=== PATIENT | male | born 1955 | race Caucasian/White ===

== ENCOUNTER 2018-06-17 11:55 | Inpatient (IN) ==
[2018-06-17 14:02] LABS: BASO# 0.02 X1000 (0.0-0.2); BASO% 0.2 % (0.0-0.8); EOS# 0.06 X1000 (0.0-0.7); EOS% 0.5 % (0.0-10.0); HEMATOCRIT 27.4 % (42.0-52.0); HEMOGLOBIN 8.7 g/dL (14.0-18.0); IMM GRAN# 0.05 X1000 (0.0-0.04); IMM GRAN% 0.4 % (0.0-0.5); LYMPH# 1.13 X1000 (1.2-3.4); LYMPH% 10.1 % (20.5-51.1); MCH 28.1 PG (27-31); MCHC 31.8 g/dL (33-37); MCV 88.4 FL (81-99); MONO# 0.71 X1000 (0.11-0.59); MONO% 6.3 % (1.7-9.3); NEUT# 9.22 X1000 (1.4-6.5); NEUT% 82.5 % (42.2-75.2); PLT 577 X1000 (130-400); RDW 12.1 % (11.5-14.5); WBC 11.19 X1000 (4.8-10.8)
[2018-06-17 14:24] LABS: AGAP 12; BUN 21 mg/dL (8-22); CALCIUM 8.7 mg/dL (8.8-10.2); CHLORIDE 100 mmol/L (98-107); COSMO 280; CREATININE 0.9 mg/dL (0.7-1.2); ESTIMATED GFR > 60; GLUCOSE 188 mg/dL (70-104); POTASSIUM 4.2 mmol/L (3.5-5.1); SODIUM 136 mmol/L (136-145); TCO2 24 mmol/L (25-35)
[2018-06-17] MEDS ORDERED: VANCOMYCIN IV PER PHARMACY MISC SCH (18:45)
--- NOTE | 2018-06-17 19:17 | CONSULTATION ---
DATE OF CONSULTATION: 06/17/2018 HISTORY OF PRESENT ILLNESS: Apparently he was sent here from [place], and there is no one at the bedside. History is that he reports his leg and foot has been giving him trouble for over a week. It looks like he has ischemic necrotic tissue in the distal right foot with an anaerobic smell and very tender and uncomfortable. I could not palpate any pedal pulses on that right foot. PAST MEDICAL HISTORY: He reports that he has diabetes, hypertension, hypercholesterolemia. PAST SURGICAL HISTORY: He does not report any surgeries. ALLERGIES: He has no known drug allergies. FAMILY HISTORY: He does not know of any family history he needs to tell me about. SOCIAL HISTORY: He denies alcohol, and he did not seem to understand what I was asking about smoking so I am not sure about his smoking history. REVIEW OF SYSTEMS: General: He does not report weight gain or loss. No fever, chills. HEENT: No change in visual or hearing acuity. Neck: No neck pain. Lymphatics: No adenopathy. Respiratory: No increased work of breathing or dyspnea. Cardiovascular: No chest pain or tachy palpitations. Gastrointestinal/Genitourinary: No reports of change in bowels or urine. Musculoskeletal/Neurologic: No new complaints or focal complaints. PHYSICAL EXAMINATION: When I saw him here on transfer, uncomfortable because he had just been transferred to the bed and then cleaned up. His right leg is very painful, his right foot. Temperature 98 degrees, pulse 80, respirations 16, blood pressure 117/73. HEENT: Pupils are equal round. Lungs: Clear in all lung avila. Cardiovascular: Regular rate without murmur or S3. CVP what appears to be less than 6 cm from the right atrium. Abdomen: Soft, nondistended. Extremities: Right leg with necrotic tissue and necrosis in the distal right foot starting and covering most of the right metatarsals. OBJECTIVE: Temperature degrees, pulse 85, respirations 16, blood pressure 117/73, O2 saturation 98%. BLOOD WORK: White count 11,190, hematocrit is 27, hemoglobin 8.7, platelet count 577,000. Sodium 136, potassium 4.2, chloride 100, bicarb 24, BUN 21, creatinine 0.9, blood sugar 188, calcium 8.7. MEDICATIONS: They had put him on some Kefzol 1 g IV q.8. He is on Plavix 75 mg a day, [place] 7.5 mg q.4 hours p.r.n., Prinivil 10 mg daily. ASSESSMENT AND PLAN: 1. Appears to be ischemic necrosis in the right foot. Dr. Padilla is to evaluate. We will continue current medication. I am not aware of any cultures that are pending, but we do need to get blood cultures and tissue cultures. I think he probably needs broad-spectrum antibiotic coverage, so I will put him on Zosyn and add vancomycin until we know what type of infection we have. We will get regular x-rays of the right foot, but he may need more definitive studies. 2. Diabetes mellitus type 2. Check patterned sugars and put on sliding scale. We will check hemoglobin A1c and see how we are doing as far as the last couple months for control. 3. Hypercholesterolemia. We will check a lipid profile. 4. Probably need to check an EKG on him as well. I am assuming we will check some Doppler flow studies, and I will defer that to Dr. Padilla. cc: MD Armando Florian MD
[2018-06-17] MEDS: KEFZOL 1 GM/D5W 1 GM/50 ML IVPB IV SCH (20:27)
[2018-06-18] MEDS: VANCOMYCIN 1,800 MG in NS 250 ML IV SCH (01:52)
[2018-06-18] MEDS: ZOSYN 3.375 GM in NS 50 ML IV SCH ×5 (02:38→22:22)
[2018-06-18] MEDS: KEFZOL 1 GM/D5W 1 GM/50 ML IVPB IV SCH (02:41)
[2018-06-18] MEDS: PRINIVIL PO SCH ×2 (02:41→11:05)
[2018-06-18] MEDS: PLAVIX PO SCH ×2 (02:42→11:05)
[2018-06-18] MEDS: NORCO-7.5 PO PRN ×2 (02:45→18:14)
[2018-06-18] MEDS ORDERED: BLISTEX MEDICATED BERRY LIP BALM TOP ONE (03:17)
[2018-06-18 06:04] LABS: BASO# 0.02 X1000 (0.0-0.2); BASO% 0.2 % (0.0-0.8); EOS# 0.11 X1000 (0.0-0.7); HEMATOCRIT 27.3 % (42.0-52.0); HEMOGLOBIN 8.6 g/dL (14.0-18.0); IMM GRAN# 0.02 X1000 (0.0-0.04); IMM GRAN% 0.2 % (0.0-0.5); LYMPH# 1.13 X1000 (1.2-3.4); LYMPH% 9.9 % (20.5-51.1); MCH 27.7 PG (27-31); MCHC 31.5 g/dL (33-37); MCV 88.1 FL (81-99); MONO# 0.76 X1000 (0.11-0.59); MONO% 6.7 % (1.7-9.3); MPV 10.5 FL (7.4-10.4); NEUT# 9.37 X1000 (1.4-6.5); PLT 580 X1000 (130-400); WBC 11.41 X1000 (4.8-10.8)
[2018-06-18 06:17] LABS: HEMOGLOBIN A1C 7.1 % (4.8-6.0)
[2018-06-18 06:33] LABS: AGAP 12; ALB/GLOB RATIO 0.5; ALBUMIN 2.9 g/dL (3.5-5.0); ALKALINE PHOSPHATASE 212 U/L (32-122); BUN 16 mg/dL (8-22); CALCIUM 9.8 mg/dL (8.8-10.2); CHLORIDE 103 mmol/L (98-107); CHOLESTEROL 79 mg/dL (0-200); COSMO 278; CREATININE 0.9 mg/dL (0.7-1.2); ESTIMATED GFR > 60; GLUCOSE 145 mg/dL (70-104); GOT 24 U/L (10-34); GPT 27 U/L (10-44); HDL 33 mg/dL (35-55); LDL 37 mg/dL; MAGNESIUM 1.9 mg/dL (1.5-2.7); POTASSIUM 4.3 mmol/L (3.5-5.1); SODIUM 137 mmol/L (136-145); TCO2 22 mmol/L (25-35); TOTAL BILIRUBIN 0.36 mg/dL (0.20-1.00); TOTAL PROTEIN 8.6 g/dL (6.3-8.3); TRIGLYCERIDES 46 mg/dL (39-160); VLDL 9 mg/dL
[2018-06-18 06:48] LABS: FREE T4 1.18 ng/dL (0.93-1.70); TSH 1.61 uIUmL (0.27-4.20)
--- NOTE | 2018-06-18 07:12 | PROGRESS NOTE ---
DATE: 06/18/2018 SUBJECTIVE: Mr. Nguyen was sleeping, resting comfortably, breathing comfortably. OBJECTIVE: Temperature 98.5 degrees, pulse 100, respirations 15, blood pressure 103/67. Pupils are equal. No distended neck veins. Lungs are clear in all lung avila. Cardiovascular Examination: Regular rhythm and rate without murmur or S3. ASSESSMENT AND PLAN: 1. Appears to have ischemic necrosis of the right foot. Was transferred here. Continue broad- spectrum antibiotics. He is to get an arterial flow study. Dr. Padilla following. 2. Diabetes mellitus type 2. Continue to follow his sugars. 3. Blood pressures appear well controlled. REVIEW OF HIS ORDERS: He is on vancomycin and Zosyn, and he is getting cefazolin. I will stop the cefazolin for now. cc: MD Armando Florian MD
[2018-06-18] MEDS ORDERED: ZOSYN ONE (09:38)
--- NOTE | 2018-06-18 10:02 | GENERAL SURGERY PROGRESS NOTE ---
DATE: 06/18/2018 Dr. Fairchild has seen him in consultation regarding medical care and I appreciate that. Mr. Nguyen is awake and alert. He is getting his tube feedings as he was in [place]. His hemodynamics were okay. He is afebrile. Heart rate 100, blood pressure 127/73. His lab work looks satisfactory so we will get a CAT scan angiogram today to evaluate his vasculature of the right leg. cc: Armando Padilla MD
[2018-06-18] MEDS ORDERED: NS 500 ML ONE (11:14)
--- NOTE | 2018-06-18 15:34 | Diag Imaging Result Doc PS360 ---
EXAM: CT ANGIOGRAM AORTA W/RUNOFF 06/18/2018 HISTORY: gangrene of right foot TECHNIQUE: This exam was performed using automated exposure control, adjustment of mA or kV according to patient size, and/or use of iterative reconstruction technique. COMMENT: There are no previous studies available for comparison. There is some atelectasis or fibrosis in the left lower lobe. There is a fairly large amount of stool throughout the colon. There is fecal impaction in the rectum. There is no evidence of bowel obstruction or appendicitis. There is a gastrostomy tube in the gastric body. There are no gallstones. There is no evidence of hydronephrosis or nephrolithiasis. There are multiple cysts in the right kidney. There are calcific and noncalcified plaques in the abdominal aorta. There is some calcified plaque in the proximal left renal and the ostium of the superior mesenteric artery. There is noncalcified plaque with ulceration in the distal abdominal aorta just below the renal arteries. The inferior mesenteric artery is patent. There is no evidence of aneurysm. There is 40% diameter stenosis of the distal left common iliac artery. The external iliac arteries are patent as are the common femoral arteries. There is stenosis of the superficial femoral artery proximally on the right. Heavy calcification is present in the mid and distal superficial femoral arteries. There are multiple serial stenoses in both superficial femoral arteries and there is occlusion of the right superficial femoral artery as it enters the adductor canal with string-like reconstitution in the popliteal artery. The tibioperoneal trunk is also narrowed. There is motion artifact affecting the distal right leg. There is some apparent runoff in the peroneal and posterior tibial arteries on the right to the ankle. The same is true on the left side where the popliteal artery and tibial peroneal artery are slightly less narrowed. There is soft tissue gas in the great toe distally on the right. This is consistent with gas gangrene. IMPRESSION: 1. Constipation and fecal impaction. 2. Generalized atherosclerosis with severe disease in the superficial femoral and popliteal arteries particularly on the right, including fairly long segment occlusion of the right superficial femoral artery. Electronically signed by Abraham Mcguire 06/18/2018 3:31 PM
[2018-06-19] MEDS: VANCOMYCIN 1,800 MG in NS 250 ML IV SCH (02:36)
[2018-06-19 06:22] LABS: AGAP 11; ALBUMIN 2.9 g/dL (3.5-5.0); BUN 19 mg/dL (8-22); CALCIUM 9.3 mg/dL (8.8-10.2); CHLORIDE 102 mmol/L (98-107); COSMO 280; CREATININE 0.9 mg/dL (0.7-1.2); ESTIMATED GFR > 60; GLUCOSE 174 mg/dL (70-104); MAGNESIUM 2.1 mg/dL (1.5-2.7); PHOSPHORUS 3.8 mg/dL (2.7-4.5); POTASSIUM 4.4 mmol/L (3.5-5.1); PREALBUMIN 11.3 mg/dL (20-40); SODIUM 137 mmol/L (136-145); TCO2 24 mmol/L (25-35)
--- NOTE | 2018-06-19 07:11 | EKG Report ---
Test Performed on : 06/17/2018 9:02:36 PM Test Reason : CP Blood Pressure : / mmHG Vent. Rate : 089 BPM Atrial Rate : 089 BPM P-R Int : 154 ms QRS Dur : 068 ms QT Int : 376 ms P-R-T Axes : 060 -06 049 degrees QTc Int : 457 ms Normal sinus rhythm. Normal ECG No previous ECGs available Confirmed by Yaneth CARRENO, Monster ([id number]) on 06/19/2018 8:54:08 AM
[2018-06-19] MEDS: PRINIVIL PO SCH (09:59)
[2018-06-19] MEDS: PLAVIX PO SCH (09:59)
[2018-06-19] MEDS: ZOSYN 3.375 GM in NS 50 ML IV SCH ×2 (10:12→18:51)
--- NOTE | 2018-06-19 13:29 | PROGRESS NOTE ---
DATE: 06/19/2018 SUBJECTIVE: Mr. Nguyen is feeling better. He is awake, still appearing uncomfortable. OBJECTIVE: Vital Signs: Temp 97.9 degrees, pulse 100.6, respirations 15, blood pressure 118/68. HEENT: Pupils are equal round. Lungs: Clear in all lung avila. Cardiovascular: Regular rhythm and rate without murmur or S3. He has been on tube feedings while he was in [place]. His right leg, plan on doing a CT angiogram of his right leg. Dr. Padilla is following. Diabetes mellitus type 2. Follow his sugars. Hypercholesterolemia. LABORATORY DATA: White count 11,410, hematocrit 27, platelet count 580,000. Blood sugars 146, 197, 174, 159, 230. Sodium 137, potassium 4.4, chloride 102, BUN 19, creatinine 0.9. Pre-albumin was 11.3. ASSESSMENT AND PLAN: 1. Right leg with ischemia and ulcerations. Looking to see if we can help with the blood supply. Dr. Padilla following. 2. Protein calorie malnutrition. Pre-albumin is 11. 3. Diabetes mellitus type 2. Blood sugars appear fairly well controlled. 4. Blood pressure appears well controlled. The patient currently on vancomycin and piperacillin. cc: MD Armando Florian MD
--- NOTE | 2018-06-19 17:25 | GENERAL SURGERY PROGRESS NOTE ---
DATE: 06/19/2018 Mr. Nguyen had a temperature of a 100.1 degrees. His hemodynamic are okay. His CTA shows an occluded right SFA and popliteal. PLAN: Plan will be to try to open up these occlusions with the atherectomy and balloon angioplasty in order to hopefully heal an amputation, the level of which we have not yet determined. I will plan to try to proceed with the atherectomy on 06/20/2018. cc: Armando Padilla MD
[2018-06-19] MEDS: NORCO-7.5 PO PRN (20:23)
[2018-06-20] MEDS: ZOSYN 3.375 GM in NS 50 ML IV SCH ×5 (00:22→22:59)
[2018-06-20] MEDS ORDERED: CALMOSEPTINE OINTMENT TOP PRN (00:58)
[2018-06-20] MEDS: VANCOMYCIN 1,800 MG in NS 250 ML IV SCH (02:37)
[2018-06-20] MEDS: NORCO-7.5 PO PRN ×2 (04:36→14:52)
[2018-06-20] MEDS ORDERED: FENTANYL ONE (09:48)
[2018-06-20] MEDS ORDERED: XYLOCAINE-MPF 2% ONE (09:48)
[2018-06-20] MEDS ORDERED: AMIDATE ONE (09:48)
[2018-06-20] MEDS ORDERED: HEPARIN ONE ×2 (10:32→10:33)
[2018-06-20] MEDS ORDERED: NS 2,000 ML ONE (10:33)
[2018-06-20 12:50] LABS: URINE SOURCE CATH
[2018-06-20 12:52] LABS: BILIRUBIN URINE NEGATIVE (NEGATIVE); BLOOD URINE NEGATIVE (NEGATIVE); COLOR YELLOW; GLUCOSE URINE NEGATIVE (NEGATIVE); KETONE URINE NEGATIVE (NEGATIVE); LEUKOCYTES URINE NEGATIVE (NEGATIVE); NITRITE URINE NEGATIVE (NEGATIVE); PH URINE 7.5; PROTEIN URINE TRACE mg/dL (NEGATIVE); SP GRAVITY URINE 1.025; TURBIDITY URINE CLEAR (CLEAR); UROBILINOGEN URINE NORMAL (NORMAL)
[2018-06-20 12:53] LABS: UR EPITHELIAL CELLS <10 /HPF (<10); URINE BACTERIA NEGATIVE /HPF; URINE RBC <10 /HPF (<10); URINE WBC <10 /HPF (<10)
--- NOTE | 2018-06-20 12:59 | OPERATIVE NOTE ---
PROCEDURE DATE: 06/20/2018 NAME OF PROCEDURES: 1. Percutaneous right superficial femoral artery atherectomy with the DCB balloon angioplasty using a 5 x 120 IN.PACT balloon. 2. Right femoral artery access with ultrasound guidance, antegrade approach. 3. Right popliteal access with ultrasound guidance, retrograde approach. DESCRIPTION OF PROCEDURE: Satisfactory general anesthesia was achieved. The left groin, right groin, and right leg were prepped and draped in a sterile fashion. The right foot was excluded. We imaged the common femoral in the right groin and under ultrasound guidance, accessed the artery, passed a wire and a 7-Mosotho sheath, Seldinger technique. We shot an arteriogram of the superficial femoral artery, revealing an occlusion in the mid SFA and reconstitution in the adductor canal in the popliteal artery. We gave the patient 5000 units of heparin. We passed the Glidewire down to the occlusion and then passed the Trailblazer and attempted to traverse the occlusion, though we got subintimal and did not get into the [place] lumen in the popliteal. I then used the ultrasound machine to image the popliteal artery at the popliteal space and then accessed the popliteal artery, followed by a wire, followed by a 6-Mosotho sheath, again with the Seldinger technique. We shot a retrograde arteriogram. It showed that we were in the [place] lumen, in the occlusion at the adductor canal. We then passed a Glidewire, followed by the Trailblazer, and attempted to go retrograde but again, stayed subintimal. We did not get into the [place] artery lumen proximally so I obtained a 4 x 4 Powerflex balloon, passed it from the popliteal retrograde up to the site of the occlusion in the mid SFA. We used an 0.018 wire from proximal, antegrade down the common femoral to the area of the blockage, and then passed a 3 x 40 Saber balloon. We put this balloon [id number] at the level of the cap and inflated both to their nominal pressures. We kept them up for less than 1 minute, then took it down. Then the wire that we had passed, the 0.018 wire, was advanced down the area of the occlusion into the [place] lumen of the popliteal. We shot an antegrade arteriogram that showed no extravasation. We then switched the 0.018 wire for an 0.014 wire and then used an H1-LS atherectomy catheter to treat the occlusion for the mid SFA to the adductor canal. After 4 passes, we then shot an arteriogram that revealed now patency to the superficial femoral artery. We obtained a 5 x 120 IN.PACT DCB balloon, inflated it to 14 atmospheres which took it to 5.5 mm, and kept it there for 3 minutes. After desufflating it, we then shot a completion arteriogram and it showed complete resolution of the stenosis and good flow down the [place] lumen. We then followed the flow through the popliteal to the trifurcation with 2 vessel runoff via the peroneal and the posterior tibial all the way to the foot in the posterior tibial. We were satisfied that we could probably attempt a transmetatarsal amputation due to his gangrenous toes and hopefully avoid a BKA. We then left our guidewire in from above. We used a Mynx closure for the 6-Mosotho in the popliteal. After deploying the plug, we shot a flow down the artery and there was no evidence of restriction to flow and no extravasation. We then removed the wire from above and then did the same with the Mynx device for the 7-Mosotho sheath as well. We held pressure for 3 minutes after deploying the plug appropriately. A pressure dressing was applied to the groin, Bernardo wrap around the popliteal. He was sent to the recovery room in satisfactory condition. Estimated blood loss was 10 mL. He was given 139 mL of contrast. cc: MD Dom Paris MD
[2018-06-20] MEDS: PRINIVIL PO SCH (14:55)
[2018-06-20] MEDS: PLAVIX PO SCH (14:55)
--- NOTE | 2018-06-20 16:47 | PROGRESS NOTE ---
DATE: 06/20/2018 SUBJECTIVE: Today Mr. Nguyen refers to be doing fairly okay. Still has some pains in the right leg, but he thinks it is a lot better after the intervention. OBJECTIVE: Vital signs: Blood pressure is currently 142/80, pulse is 95, respiration is 15, temperature is 97.8 degrees. On general exam, Mr. Nguyen is a 63-year-old gentleman. He is in bed, no distress. Mucosa is pink and moist. Anicteric. Acyanotic. Neck is supple. Chest was clear to auscultation. No crepitations. No rhonchi. Cardiovascular: Regular rate and rhythm. Abdomen is soft, nontender. Bowel sounds present. Extremities: Left lower extremity is unremarkable. Pulses are present. The right lower extremity has some necrosis over the dorsum of the of the foot. The big toe and the 2nd toe look very gangrenous. I did not feel any pulse. He did have some sterile bandage over the right knee, just around the entire knee and the back from the early childhood education coordinator surgery. DIAGNOSTIC STUDIES: There were no labs for this morning. His glucose is 118. A1c is 7.1. I have also reviewed the operative report. The procedure that was performed was percutaneous right superficial femoral artery atherectomy with the DCB balloon angioplasty using a 5 x 120 IN.PACT balloon. ASSESSMENT: 1. 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 Imaging studies revealed obstruction of the superior femoral artery as well as the popliteal artery on the right. The patient is status post vascular intervention with femoral atherectomy and balloon angioplasty. Per the surgery report, it appears there was adequate flow going down into the foot. We will continue with regular examination of the foot and follow up with further recommendations from Vascular Surgery. 2. Protein-calorie malnutrition. 3. Diabetes mellitus with presenting A1c of 7.1, stable. 4. Hypertension is controlled. 5. Severe peripheral vascular disease. We will start the patient on statin. He is already on Plavix. cc: Dom Alcantara MD
[2018-06-20] MEDS: CRESTOR PO SCH (22:17)
[2018-06-21] MEDS: VANCOMYCIN 1,800 MG in NS 250 ML IV SCH ×2 (02:49→22:19)
[2018-06-21] MEDS: NORCO-7.5 PO PRN (05:21)
[2018-06-21] MEDS: ZOSYN 3.375 GM in NS 50 ML IV SCH ×2 (05:22→11:29)
[2018-06-21 06:12] LABS: BASO# 0.02 X1000 (0.0-0.2); BASO% 0.2 % (0.0-0.8); EOS# 0.05 X1000 (0.0-0.7); EOS% 0.4 % (0.0-10.0); HEMATOCRIT 25.2 % (42.0-52.0); HEMOGLOBIN 7.7 g/dL (14.0-18.0); IMM GRAN# 0.03 X1000 (0.0-0.04); IMM GRAN% 0.2 % (0.0-0.5); LYMPH# 1.13 X1000 (1.2-3.4); LYMPH% 8.6 % (20.5-51.1); MCH 27.3 PG (27-31); MCHC 30.6 g/dL (33-37); MCV 89.4 FL (81-99); MONO# 0.86 X1000 (0.11-0.59); MONO% 6.5 % (1.7-9.3); MPV 10.2 FL (7.4-10.4); NEUT# 11.07 X1000 (1.4-6.5); NEUT% 84.1 % (42.2-75.2); PLT 554 X1000 (130-400); RBC 2.82 XMIL (4.7-6.1); RDW 12.6 % (11.5-14.5); WBC 13.16 X1000 (4.8-10.8)
[2018-06-21 06:39] LABS: AGAP 10; BUN 16 mg/dL (8-22); CALCIUM 8.9 mg/dL (8.8-10.2); CHLORIDE 102 mmol/L (98-107); COSMO 280; CREATININE 0.9 mg/dL (0.7-1.2); ESTIMATED GFR > 60; GLUCOSE 182 mg/dL (70-104); POTASSIUM 4.2 mmol/L (3.5-5.1); SODIUM 137 mmol/L (136-145); TCO2 25 mmol/L (25-35)
[2018-06-21] MEDS: PERIDEX MT SCH ×2 (11:11→22:19)
[2018-06-21] MEDS: PRINIVIL PO SCH (11:11)
[2018-06-21] MEDS: PLAVIX PO SCH (11:11)
--- NOTE | 2018-06-21 14:14 | PROGRESS NOTE ---
DATE: 06/21/2018 SUBJECTIVE: This morning Mr. Nguyen refers to be doing okay. Denied any complaint. There was no family member at the bedside at the time of the encounter. OBJECTIVE: Vital signs: Blood pressure is 114/65, pulse is 103, respirations 16, temperature is 100.2 degrees. General exam: Mr. Nguyen is a 63-year-old gentleman. He is in bed. He was not in any cardiopulmonary distress. HEENT: Mucosa is pink and moist. Anicteric. Acyanotic. Neck: Supple. Chest: Clear to auscultation. No crepitations. No rhonchi. Cardiovascular: Regular rate and rhythm. No murmurs, no rubs, no gallops. GI: Abdomen was soft, nontender. Bowel sounds present. Extremities: Left lower extremity is unremarkable. The right lower extremity has the necrotic changes of the first and the second toes. There are also some necrotic changes over the dorsum and there was a little smell to it. I could not feel any pulse. FREIGHT CLAIM INVESTIGATOR: Patient was awake, alert. Follows basic commands. LABORATORY DATA: WBC is 13.16, hemoglobin is 7.7, platelet count of 554. Chemistry is also reviewed, completely normal. Glucose is 182. ASSESSMENT: 1. Severe peripheral vascular disease on the right foot associated with dry gangrene. The patient is status post right superficial femoral artery and popliteal artery vascular intervention. Vascular Surgery is on board. For now, we are going to continue with the antibiotic coverage. Continue with the statin and anti-platelet agents. 2. Protein calorie malnutrition. Dietitian is on board to optimize patient's nutritional status. 3. Diabetes mellitus with presenting A1c of 7.1. We will continue with insulin regimen. 4. Hypertension, controlled. DISPOSITION: Will depend on the rest of the hospital course. Patient I understand is a resident of [facility]. cc: Dom Alcantara MD
[2018-06-21] MEDS ORDERED: BASAGLAR SUBQ ONE (18:26)
--- NOTE | 2018-06-21 18:31 | GENERAL SURGERY PROGRESS NOTE ---
DATE: 06/21/2018 OBJECTIVE: Mr. Nguyen is now with temperature of 100.2 degrees, heart rate 103, blood pressure 114/62. LABORATORY DATA: White count is 13,200, hemoglobin 7.7, hematocrit 25. Chemistry is fine. PLAN: Transmetatarsal amputation on Tuesday. We will recheck his white count and hemoglobin tomorrow. cc: MD Dom Paris MD
[2018-06-21] MEDS ORDERED: INSULIN PEN NEEDLES ONE (22:15)
[2018-06-21] MEDS: CRESTOR PO SCH (22:19)
[2018-06-21] MEDS: APIDRA SUBQ SCH (22:42)
[2018-06-22] MEDS: ZOSYN 3.375 GM in NS 50 ML IV SCH ×4 (00:35→20:05)
[2018-06-22] MEDS ORDERED: TYLENOL PO PRN (02:30)
[2018-06-22 02:47] LABS: URINE SOURCE CATH
[2018-06-22 02:52] LABS: BILIRUBIN URINE NEGATIVE (NEGATIVE); BLOOD URINE SMALL (NEGATIVE); COLOR YELLOW; GLUCOSE URINE NEGATIVE (NEGATIVE); KETONE URINE NEGATIVE (NEGATIVE); LEUKOCYTES URINE TRACE (NEGATIVE); NITRITE URINE NEGATIVE (NEGATIVE); PROTEIN URINE 50 mg/dL (NEGATIVE); TURBIDITY URINE HAZY (CLEAR); UROBILINOGEN URINE NORMAL (NORMAL)
[2018-06-22 02:54] LABS: UR EPITHELIAL CELLS <10 /HPF (<10); URINE BACTERIA NEGATIVE /HPF; URINE RBC 20-40 /HPF (<10); URINE WBC <10 /HPF (<10)
[2018-06-22 03:10] LABS: URINE CASTS NONE SEEN; URINE CRYSTALS NONE SEEN; URINE SMALL ROUND CELLS NONE SEEN; URINE YEAST NONE SEEN
[2018-06-22 03:31] LABS: INR 1.47
[2018-06-22 03:52] LABS: AGAP 13; ALB/GLOB RATIO 0.6; ALBUMIN 2.6 g/dL (3.5-5.0); ALKALINE PHOSPHATASE 187 U/L (32-122); BUN 26 mg/dL (8-22); CHLORIDE 104 mmol/L (98-107); CK PROFILE 118 U/L (24-204); COSMO 292; ESTIMATED GFR > 60; GLUCOSE 201 mg/dL (70-104); GOT 25 U/L (10-34); GPT 25 U/L (10-44); POTASSIUM 4.2 mmol/L (3.5-5.1); SODIUM 141 mmol/L (136-145); TCO2 24 mmol/L (25-35); TOTAL BILIRUBIN 0.25 mg/dL (0.20-1.00); TOTAL PROTEIN 6.9 g/dL (6.3-8.3)
[2018-06-22 04:21] LABS: BASO# 0.03 X1000 (0.0-0.2); BASO% 0.2 % (0.0-0.8); EOS# 0.09 X1000 (0.0-0.7); EOS% 0.7 % (0.0-10.0); HEMATOCRIT 22.1 % (42.0-52.0); HEMOGLOBIN 6.8 g/dL (14.0-18.0); IMM GRAN# 0.04 X1000 (0.0-0.04); IMM GRAN% 0.3 % (0.0-0.5); LYMPH# 1.15 X1000 (1.2-3.4); LYMPH% 8.5 % (20.5-51.1); MCH 27.4 PG (27-31); MCHC 30.8 g/dL (33-37); MCV 89.1 FL (81-99); MONO# 0.97 X1000 (0.11-0.59); MONO% 7.2 % (1.7-9.3); MPV 9.1 FL (7.4-10.4); NEUT# 11.18 X1000 (1.4-6.5); NEUT% 83.1 % (42.2-75.2); PLT 506 X1000 (130-400); RBC 2.48 XMIL (4.7-6.1); RDW 12.6 % (11.5-14.5); WBC 13.46 X1000 (4.8-10.8)
[2018-06-22] MEDS: APIDRA SUBQ SCH ×4 (06:47→21:20)
--- NOTE | 2018-06-22 07:07 | Diag Imaging Result Doc PS360 ---
EXAM: CHEST-1 VIEW 06/22/2018 HISTORY: positive sepsis screen TECHNIQUE: AP portable at 0318 COMMENT: There is ill-defined interstitial opacity over the lingula and left lower lobe. There are no previous radiographs available for comparison, however there was increased interstitial opacity in the left lower lobe on the CT of the abdomen dated 06/18/2018. IMPRESSION: Left lower lobe and lingular pneumonia. Electronically signed by Abraham Mcguire 06/22/2018 7:05 AM
[2018-06-22 07:59] LABS: TOTAL IRON 17 ug/dL (53-167); UNBOUND IRON 203 ug/dL (112-346)
[2018-06-22 08:00] LABS: IRON SATURATION 8 %; TIBC 220 ug/dL
[2018-06-22] MEDS ORDERED: NS 500 ML IV SCH (08:00)
--- NOTE | 2018-06-22 10:56 | PROGRESS NOTE ---
DATE: 06/22/2018 SUBJECTIVE: Today, Mr. Nguyen refers to be doing fairly okay. Denies any complaints. OBJECTIVE: Vital Signs: Blood pressure 121/64, pulse about 120, respirations 20, and temperature 98 degrees. General: Mr. Nguyen is a 63-year-old gentleman. He was in bed, did not seem to be in any distress. Mucosa is pink and moist. Anicteric. Acyanotic. Neck: Supple. Chest: Clear to auscultation. Cardiovascular: Regular rate and rhythm. Abdomen: Soft and nontender. There is a PEG tube in place. Extremities: No pedal edema. The right lower extremity has some necrotic changes over the dorsum. The 1st and 2nd toes are necrotic. There is not any exudation. However, there is a lot of smell. COIL STRAPPER: Patient is awake, alert, and follows basic commands. LABORATORY DATA: WBC is 13.46, hemoglobin is 6.8, and platelet count of 508,000. Chemistry none for today. Iron studies are consistent with iron deficiency anemia on top of anemia of chronic disease. ASSESSMENT: 1. Severe peripheral vascular disease on the right lower extremity associated with dry gangrene to the foot and the toes. The patient is status post right superficial femoral artery and popliteal artery vascular intervention. Vascular Surgery is on board. We will continue with the current management. 2. Protein calorie malnutrition. Dietitian is on board. The patient is currently on tube feedings. We will also going to do a swallow evaluation to see if he will be able to tolerate using the upper GI as well. 3. Diabetes mellitus with presenting A1c of 7.1. We will continue with insulin regimen. 4. Hypertension is currently controlled. 5. Normocytic anemia secondary to anemia of chronic disease with underlying iron deficiency. Hemoglobin and hematocrit has dropped to 6.8. Part of this could be dilutional. We will group and crossmatch Mr. Nguyen for 2 PRBC's transfusion today. cc: Dom Alcantara MD
[2018-06-22] MEDS: PRINIVIL PO SCH (11:30)
[2018-06-22] MEDS: PERIDEX MT SCH ×2 (11:30→20:32)
[2018-06-22] MEDS: PLAVIX PO SCH (11:30)
[2018-06-22] MEDS ORDERED: PLAVIX PEG SCH (11:45)
[2018-06-22] MEDS: MYCOSTATIN SUSP PO SCH ×3 (12:00→20:05)
--- NOTE | 2018-06-22 12:38 | GENERAL SURGERY PROGRESS NOTE ---
DATE: 06/22/2018 SUBJECTIVE: Mr. Nguyen's hemoglobin has fallen down to 6.8. His PVR's are preserved all the way to the ankle. Therefore, we will plan a transmetatarsal amputation to try to preserve his heel. I discussed this with him. We will plan to proceed tomorrow in the operating room. I agree with transfusion today. cc: MD Dom Paris MD
[2018-06-22] MEDS: BASAGLAR SUBQ SCH (16:21)
--- NOTE | 2018-06-22 16:39 | VASCULAR LAB ---
DATE: 06/21/2018 STUDY: Bilateral lower extremity segmental Doppler exam. LANDSCAPING SPECIALIST: Binh. REQUESTING PHYSICIAN: Dr Padilla. INDICATION: Gangrene of the right foot; to evaluate for amputation. FINDINGS: Brachial on the right is 125, on the left 121. High thigh on the right is 137, on the left 160. Low thigh on the right is 119, on the left 115. Calf on the right is 250, on the left 250. DP on the right is 69, on the left 182. PT on the right is 250, on the left 250. Toe pressure on the right is 0 and on the left 48. BESSY on the right is 2.00, on the left 2.00. Toe brachial indices on the right is 0.38. IMPRESSION: There is pulsatile waveforms noted to the ankles bilaterally. There is lack of compressibility noted in the tibial vessels, which would suggest significant calcific disease and this does correlate to an elevated BESSY bilaterally. SUMMARY: Pulsatile flow to the calves bilaterally. There is non compressibility with elevation of ABIs that would suggest calcific disease. cc: MD Armando Patton MD Raphael K. Quansah, MD
[2018-06-22] MEDS: CRESTOR PEG SCH (20:06)
[2018-06-22] MEDS: TYLENOL PEG PRN (20:16)
[2018-06-22] MEDS: VANCOMYCIN 1,800 MG in NS 250 ML IV SCH (21:20)
[2018-06-23] MEDS: ZOSYN 3.375 GM in NS 50 ML IV SCH ×5 (01:52→21:15)
[2018-06-23] MEDS ORDERED: AFRIN NASAL SPRAY NAS ONE (05:20)
[2018-06-23] MEDS ORDERED: INSULIN PEN NEEDLES ONE (05:42)
[2018-06-23] MEDS: APIDRA SUBQ SCH ×4 (06:24→21:36)
[2018-06-23 06:49] LABS: INR 1.29; PROTIME 17.1 Seconds (11.0-16.0)
[2018-06-23 07:06] LABS: BASO# 0.03 X1000 (0.0-0.2); BASO% 0.2 % (0.0-0.8); EOS# 0.11 X1000 (0.0-0.7); EOS% 0.8 % (0.0-10.0); HEMATOCRIT 25.9 % (42.0-52.0); HEMOGLOBIN 8.3 g/dL (14.0-18.0); IMM GRAN# 0.04 X1000 (0.0-0.04); IMM GRAN% 0.3 % (0.0-0.5); LYMPH# 0.98 X1000 (1.2-3.4); LYMPH% 6.8 % (20.5-51.1); MCH 28.1 PG (27-31); MCV 87.8 FL (81-99); MONO# 0.81 X1000 (0.11-0.59); MONO% 5.6 % (1.7-9.3); MPV 10.6 FL (7.4-10.4); NEUT# 12.41 X1000 (1.4-6.5); NEUT% 86.3 % (42.2-75.2); PLT 395 X1000 (130-400); RBC 2.95 XMIL (4.7-6.1); RDW 13.6 % (11.5-14.5); WBC 14.38 X1000 (4.8-10.8)
[2018-06-23 07:23] LABS: AGAP 10; BUN 29 mg/dL (8-22); CALCIUM 8.7 mg/dL (8.8-10.2); CHLORIDE 106 mmol/L (98-107); COSMO 291; CREATININE 0.8 mg/dL (0.7-1.2); ESTIMATED GFR > 60; GLUCOSE 197 mg/dL (70-104); POTASSIUM 3.9 mmol/L (3.5-5.1); SODIUM 140 mmol/L (136-145); TCO2 24 mmol/L (25-35)
--- NOTE | 2018-06-23 07:51 | Diag Imaging Result Doc PS360 ---
CHEST-PORTABLE - 06/23/2018 INDICATION: coughing COMPARISON: 06/22/2018 FINDINGS: There has been improvement in the small infiltrate in the lingula. No new infiltrates. No pneumothorax or significant pleural effusion. Heart size is normal. IMPRESSION: Improving lingular pneumonia. Electronically signed by Gerber Alonso 06/23/2018 7:48 AM
[2018-06-23] MEDS ORDERED: DIPRIVAN 1% ONE (11:03)
[2018-06-23] MEDS ORDERED: QUELICIN (DOSE) ONE (11:05)
[2018-06-23] MEDS: BASAGLAR SUBQ SCH (11:13)
[2018-06-23] MEDS: MYCOSTATIN SUSP PO SCH ×4 (11:14→21:28)
[2018-06-23] MEDS: PRINIVIL PEG SCH (11:15)
[2018-06-23] MEDS: PERIDEX MT SCH ×2 (11:16→21:34)
[2018-06-23] MEDS ORDERED: XYLOCAINE-MPF 2% ONE (11:34)
[2018-06-23] MEDS ORDERED: FENTANYL ONE (12:25)
--- NOTE | 2018-06-23 12:46 | PROGRESS NOTE ---
DATE: 06/23/2018 SUBJECTIVE: This morning, Mr. Nguyen refers to be doing a little better. I was told from yesterday that he was coughing up some blood and then early this morning he was having some nasal epistaxis. OBJECTIVE: Vital signs: Blood pressure is 101/75, pulse of 108, respirations 20, temperature 98.4 degrees. General: Mr. Nguyen is a 63-year-old gentleman. He was in bed. Was not in any cardiopulmonary distress. HEENT: Mucosa is pink and moist. Anicteric. Acyanotic. Neck: Supple. Chest: Good air entry bilateral. A few crackles in the posterior lung avila. Cardiovascular: Regular rate and rhythm. Abdomen: Soft, nontender. PEG tube is in place. Extremities: No pedal edema. The right lower extremity continues to have these necrotic changes over the dorsum. The 1st and 2nd toes are also necrotic. No obvious exudation and the smell is a lot better. Central nervous system: Patient is awake and follows basic commands. LABORATORY DATA: WBC is 14.38, hemoglobin is 8.23, platelet count of 295,000. Chemistry is also reviewed, is all unremarkable. ASSESSMENT: 1. Severe peripheral vascular disease on the right lower extremity associated with dry gangrene to the foot and to the toes. The patient is status post right superficial femoral artery and popliteal artery vascular intervention. There is a plan for a transmetatarsal amputation today. 2. Protein calorie malnutrition. We will continue with diet supplementation. Dietitian is on board. 3. Diabetes mellitus with presenting A1c of 7.1. We will continue with insulin regimen. I have decreased the dose of regular insulin. 4. Normocytic anemia secondary to anemia of chronic disease with iron deficiency. Patient had 2 units of PRBC transfusion. Hemoglobin and hematocrit this morning is a lot better. 5. Epistaxis. I think is a combination of the oxygen therapy drying the nostril on the background of clopidogrel therapy, stable now. 6. We will re-evaluate Mr. Nguyen once he comes out of surgery as well. cc: Dom Alcantara MD
--- NOTE | 2018-06-23 15:07 | OPERATIVE NOTE ---
PROCEDURE DATE: 06/23/2018 PROCEDURES: Right transmetatarsal amputation. SURGEON: Armando Padilla MD. ELECTRICAL LABORATORY TECHNICIAN: Erin. PREOPERATIVE DIAGNOSIS: Gangrene toes of the forefoot on the right side. POSTOPERATIVE DIAGNOSIS: Gangrene toes of the forefoot on the right side. DESCRIPTION OF PROCEDURE: Satisfactory general anesthesia was achieved. An LMA was used. The right lower leg and foot were prepped and draped in a sterile fashion. We marked the skin in a [place] type fashion with the longer flap being posterior. We then incised the skin, and carried our incision through the subcutaneous tissue through the tendinous tissue all the way to the metatarsals. We isolated each metatarsal used a bone biter to transect each metatarsal. We handed off the toes. We used a rongeur to rongeur back to metatarsals. There was purulent drainage from the lateral foot anteriorly. We had to excise extra skin and cut away more the tendinous tissue proximally. We then copiously irrigated the wound. There was satisfactory bleeding. Because of the infection, I felt that we would leave the wound open for now and come back later and close the wound at a later time. So, we packed it with Betadine gauze followed by sterile Kerlix, followed by sterile 4-inch Bernardo. He tolerated it well, was sent to the recovery room in satisfactory condition. cc: MD Dom Paris MD
[2018-06-23] MEDS: VANCOMYCIN 1,800 MG in NS 250 ML IV SCH (16:15)
[2018-06-23] MEDS: CRESTOR PEG SCH (21:16)
[2018-06-24] MEDS: ZOSYN 3.375 GM in NS 50 ML IV SCH ×4 (02:43→20:24)
[2018-06-24] MEDS: DILAUDID IV PRN ×3 (08:17→23:16)
[2018-06-24] MEDS: VANCOMYCIN 1,800 MG in NS 250 ML IV SCH (08:20)
[2018-06-24] MEDS: PRINIVIL PEG SCH (08:21)
[2018-06-24] MEDS: MYCOSTATIN SUSP PO SCH ×4 (08:22→18:54)
[2018-06-24] MEDS: BASAGLAR SUBQ SCH (08:22)
[2018-06-24] MEDS: PERIDEX MT SCH (08:23)
[2018-06-24] MEDS: APIDRA SUBQ SCH ×3 (08:50→16:08)
--- NOTE | 2018-06-24 09:42 | PROGRESS NOTE ---
DATE: 06/24/2018 SUBJECTIVE: Mr. Nguyen underwent atherectomy of his superficial femoral artery per Dr. Padilla on 06/20/2018. He also underwent a transmetatarsal amputation on that side that was left open because of infection. He is undergoing dressing changes. He is on antibiotics and he receives tube feedings. OBJECTIVE: His heart rate is 99 to 105, blood pressure 126/84, O2 saturation 93%. He has a low- grade temperature 99.3 degrees. He is awake, but really not responsive to any questions. I went over his care with his nurse. cc: MD Dom Enriquez MD
--- NOTE | 2018-06-24 15:06 | PROGRESS NOTE ---
DATE: 06/24/2018 SUBJECTIVE: This morning Mr. Nguyen referred to be doing fairly okay. He was getting his tube feeding at the time of the encounter. Per the nursing staff, night was uneventful. OBJECTIVE: Current vitals: Blood pressure is 137/79, pulse is 99, respirations 20, temperature is 97.8 degrees. The patient is saturating 96% on room air. General: On general exam, Mr. Nguyen is a 63-year-old gentleman. He is in bed in no distress. HEENT: Mucosa is pink and moist. Anicteric. Acyanotic. Neck: Supple. No JVD. Chest: Good air entry bilaterally. A few crackles in the posterior lung avila. Cardiovascular: Regular rate and rhythm. No murmurs, no rubs, no gallops. GI: Abdomen is soft, nontender. There is a PEG tube in place. Insertion site looks clean. Extremities: No pedal edema. The right lower extremity has a sterile dressing over the foot. There was transmetatarsal amputation yesterday done. MIDDLEWARE ENGINEER: Patient is awake, follows basic commands. LABORATORY DATA: None for today. Glucose is 176. So far, blood culture and urine culture have been negative. CURRENT MEDICATIONS: Have all been reviewed. The patient is on Zosyn 3.375 g every 6 hours. Today is day 6. Vancomycin per pharmacy protocol; today is also day 6. ASSESSMENT: 1. Severe peripheral vascular disease in the right lower extremity. The patient is status post right superficial femoral artery and popliteal artery vascular intervention. 2. Dry gangrene to the right foot. The patient is status post transmetatarsal amputation; today is day 1 postop. 3. Protein calorie malnutrition. We will continue with percutaneous endoscopic gastrostomy tube feeding. Dietitian is on board. 4. Diabetes mellitus with presenting A1c of 7.1. We will continue with insulin regimen. 5. Normocytic anemia secondary to chronic disease with also iron deficiency. Patient is status post 2 packed red blood cell transfusion. Hemoglobin and hematocrit is stable. 6. Epistaxis, resolved. PLAN: So, in general, I think Mr. Nguyen is fairly stable. I understand the transmetatarsal stump was left open because of some infection. There is a second surgery planned for early next week for more debridement and possibly closure of the stump. For now, we are going to continue with the current antimicrobial coverage. cc: Dom Alcantara MD
[2018-06-24] MEDS: CRESTOR PEG SCH (20:24)
[2018-06-25] MEDS: MYCOSTATIN SUSP PO SCH ×4 (01:32→21:26)
[2018-06-25] MEDS: PERIDEX MT SCH ×3 (01:33→21:09)
[2018-06-25] MEDS: APIDRA SUBQ SCH ×5 (02:48→21:25)
[2018-06-25] MEDS: ZOSYN 3.375 GM in NS 50 ML IV SCH ×4 (02:48→21:09)
[2018-06-25] MEDS: VANCOMYCIN 1,800 MG in NS 250 ML IV SCH (03:51)
[2018-06-25] MEDS: DILAUDID IV PRN ×3 (04:29→18:15)
[2018-06-25] MEDS: BASAGLAR SUBQ SCH (10:07)
[2018-06-25] MEDS: PRINIVIL PEG SCH (10:10)
[2018-06-25] MEDS ORDERED: NS 500 ML ONE (10:35)
--- NOTE | 2018-06-25 13:12 | PROGRESS NOTE ---
DATE: 06/25/2018 SUBJECTIVE: This morning, Mr. Nguyen refers to be doing fairly okay. No new complaints. OBJECTIVE: Vital Signs: Blood pressure is 125/74, pulse is 83, respirations are 20, temperature is 97.5 degrees. General Examination: Mr. Nguyen is a 63-year-old, gentleman. He was in bed. Not seemingly in distress. HEENT: Mucosa is pink and moist. Anicteric. Acyanotic. Neck: Supple. Chest: Good air entry bilaterally. No crepitations. No rhonchi. Cardiovascular: Regular rate and rhythm. No murmurs, no rubs, no gallops. GI: Abdomen is soft, nontender. PEG tube is in place and insertion site looks clean. Extremities: No pedal edema. The right lower extremity has a sterile dressing over the transmetatarsal amputation site. ELECTROLESS PLATER: The patient is awake, follows basic commands. Laboratory Data: Glucose this morning is 120. Current Medications: Have all been reviewed. No changes. ASSESSMENT: 1. Severe peripheral vascular disease in the right lower extremity. Patient is status post superficial femoral artery and popliteal artery vascular intervention. He is also on aspirin and a statin. 2. Dry gangrene to the right foot. The patient is status post transmetatarsal amputation. Today is day 2 postop. 3. Protein calorie malnutrition. We will continue with percutaneous endoscopic gastrostomy tube feedings. 4. Diabetes mellitus with presenting A1c of 7.1. We will continue with the insulin regimen and titrate it accordingly for adequate glycemic control. 5. Normocytic anemia secondary to chronic disease on top of iron deficiency. Patient is status post 2 units of packed right red blood cell transfusion. 6. Epistaxis, resolved. PLAN: In general, I think Mr. Nguyen is doing fairly okay. He underwent a transmetatarsal amputation of the right foot, which I understand was left open. He is pending another intervention Tuesday, , and closure of the stump. We are going to continue the current insulin regimen and antibiotics. Hopefully, at surgery, we can get swabs for cultures. cc: Dom Alcantara MD
--- NOTE | 2018-06-25 18:07 | PROGRESS NOTE ---
DATE: 06/25/2018 SUBJECTIVE: Mr. [place] Nguyen is status post right transmetatarsal amputation after revascularization performed on 06/20/2018. The wound has been left open because of infection. He is getting daily dressing changes and antibiotics. OBJECTIVE: Vital signs: His heart rate is 83, blood pressure 133/75, O2 saturation 90%. He is afebrile. LABS: His sugars have been 150-225. cc: MD Dom Enriquez MD
[2018-06-25] MEDS: CRESTOR PEG SCH (21:09)
[2018-06-25] MEDS: VANCOMYCIN 2 GM in NS 500 ML IV SCH (22:19)
[2018-06-26] MEDS: ZOSYN 3.375 GM in NS 50 ML IV SCH ×4 (01:34→21:15)
[2018-06-26 06:29] LABS: AGAP 10; BUN 13 mg/dL (8-22); CALCIUM 8.9 mg/dL (8.8-10.2); CHLORIDE 106 mmol/L (98-107); COSMO 280; CREATININE 0.8 mg/dL (0.7-1.2); ESTIMATED GFR > 60; GLUCOSE 100 mg/dL (70-104); MAGNESIUM 1.9 mg/dL (1.5-2.7); POTASSIUM 4.2 mmol/L (3.5-5.1); SODIUM 140 mmol/L (136-145); TCO2 24 mmol/L (25-35)
[2018-06-26 06:46] LABS: BASO# 0.03 X1000 (0.0-0.2); BASO% 0.3 % (0.0-0.8); EOS# 0.15 X1000 (0.0-0.7); EOS% 1.6 % (0.0-10.0); IMM GRAN# 0.04 X1000 (0.0-0.04); IMM GRAN% 0.4 % (0.0-0.5); LYMPH# 1.08 X1000 (1.2-3.4); LYMPH% 11.8 % (20.5-51.1); MCH 27.7 PG (27-31); MCHC 30.8 g/dL (33-37); MONO# 0.46 X1000 (0.11-0.59); MPV 10.8 FL (7.4-10.4); NEUT# 7.42 X1000 (1.4-6.5); NEUT% 80.9 % (42.2-75.2); PLT 481 X1000 (130-400); RBC 2.89 XMIL (4.7-6.1); RDW 13.6 % (11.5-14.5); WBC 9.18 X1000 (4.8-10.8)
[2018-06-26] MEDS: DILAUDID IV PRN ×2 (07:11→15:05)
[2018-06-26] MEDS: PRINIVIL PEG SCH (08:45)
[2018-06-26] MEDS: MYCOSTATIN SUSP PO SCH ×5 (08:45→21:14)
[2018-06-26] MEDS: BASAGLAR SUBQ SCH (08:46)
[2018-06-26] MEDS: PERIDEX MT SCH ×2 (08:46→21:14)
[2018-06-26] MEDS: APIDRA SUBQ SCH ×3 (10:36→22:20)
--- NOTE | 2018-06-26 11:08 | GENERAL SURGERY PROGRESS NOTE ---
DATE: 06/26/2018 SUBJECTIVE: There were no acute events over the weekend. OBJECTIVE: He is afebrile. Vital signs are stable.General: He is awake and alert, oriented x3. No acute distress. Extremities: The right foot amputation site was examined. There remains some swelling and serosanguineous drainage. He is still very tender; however, no gross pus was seen. There is the beginning of some granulation tissue in the wound bed. I redressed it at the bedside. LABORATORY: White blood cell count 9.2, hemoglobin 8. Electrolytes reviewed, unremarkable. ASSESSMENT AND PLAN: A 63-year-old male status post right transmetatarsal amputation and right superficial femoral artery atherectomy and angioplasty. Overall, the wound is improving. The wound will probably heal in time. He will need wet-to-dry dressing changes at home and can follow up with Dr. Padilla within the week after discharge for further wound care. cc: MD Dom Vasquez MD
--- NOTE | 2018-06-26 14:55 | PROGRESS NOTE ---
DATE: 06/26/2018 SUBJECTIVE: This morning Mr. Nguyen refers to be doing fairly okay. The stump was dressed early on this morning. OBJECTIVE: Vitals: Blood pressure is 118/78, pulse is 71, respiration is 18, temperature is 98.7 degrees. General: Mr. Nguyen is a 63-year-old gentleman he is in bed, no distress. Mucosa is pink and moist. Anicteric. Acyanotic. Neck: Supple. Chest: Clear to auscultation. No crepitations, no rhonchi. Cardiovascular: Regular rate and rhythm. No murmurs, no rubs, no gallops. Abdomen: Soft, nontender. PEG tube is in place. Insertion site looks clean. Extremities: No pedal edema. FINANCIAL PLANNING ANALYST: Patient is awake, alert, follows basic command. Musculoskeletal: The right lower extremity has a transmetatarsal amputation and it is wrapped up in sterile dressing. LABORATORY DATA: WBC is down to 9.18, hemoglobin is 8.0, platelet count of 481,000. Chemistry is also reviewed is completely normal. So far patient blood cultures have been negative, unfortunately we do not have any culture from the foot. ASSESSMENT: 1. Severe peripheral vascular disease in the right lower extremity status post superficial femoral artery arthrectomy and angioplasty. Patient is also on aspirin and statin. 2. Dry gangrene to the right foot status post transmetatarsal amputation. Today is day 3 postop. It appears from the surgery notes that the wound is healing well and they do not plan to do anything now. 3. Protein calorie malnutrition. Patient is on percutaneous gastrostomy tube. 4. Diabetes mellitus with presenting A1c of 7.1. 5. Normocytic anemia secondary to chronic disease on top of iron deficiency. Patient is status post 2 packed red blood cell transfusion. Epistaxis resolved. PLAN: So in general I think Mr. Nguyen is doing fine. It appears from the general surgery note today that they do not plan to do any more interventions on the foot now. They recommend wet-to- dry dressing. Patient is currently on broad-spectrum IV antibiotics. Mr. Nguyen is medically stable fro discharge once ok with surgery. I understand Mr. Nguyen is a resident of [facility]. cc: Dom Alcantara MD [facility]
[2018-06-26] MEDS: VANCOMYCIN 2 GM in NS 500 ML IV SCH (16:03)
[2018-06-26] MEDS: CRESTOR PEG SCH (21:15)
[2018-06-27] MEDS: ZOSYN 3.375 GM in NS 50 ML IV SCH ×4 (01:58→21:55)
[2018-06-27] MEDS: APIDRA SUBQ SCH ×4 (06:42→21:36)
[2018-06-27] MEDS: PRINIVIL PEG SCH (09:04)
[2018-06-27] MEDS: BASAGLAR SUBQ SCH (09:04)
[2018-06-27] MEDS: MYCOSTATIN SUSP PO SCH ×4 (09:06→21:35)
[2018-06-27] MEDS: PERIDEX MT SCH ×2 (09:06→21:36)
[2018-06-27] MEDS: VANCOMYCIN 2 GM in NS 500 ML IV SCH (10:00)
[2018-06-27] MEDS: DILAUDID IV PRN ×2 (10:03→16:32)
--- NOTE | 2018-06-27 18:33 | PROGRESS NOTE ---
DATE: 06/27/2018 SUBJECTIVE: The patient is resting in bed. Not in any obvious distress. OBJECTIVE: Vital signs: Temperature 98 degrees, pulse 90, respiratory rate is 18, blood pressure 134/76, O2 saturation is 100%. HEENT: Patient is atraumatic, normocephalic. Cardiovascular: S1, S2. Respiratory system: Has evidence of good air entry bilaterally. Abdomen: Soft, nontender. No masses felt. Extremity: Wound to right foot dressed. Central Nervous System: No focal deficit noted. LABORATORY DATA: Blood glucose is 143. ASSESSMENT AND PLAN: 1. Severe peripheral arterial disease in the right lower extremity. Status post superficial femoral artery arthrectomy and angioplasty. The patient is currently on aspirin as well as statin. 2. Dry gangrene on the right foot status post transmetatarsal amputation. Surgery following. 3. Present calorie malnutrition. Continue PEG tube feeding. 4. Diabetes mellitus. Monitor blood sugar levels. Maintain patient on sliding scale insulin. 5. Anemia. Follow up on hemoglobin, hematocrit. Transfuse PRBCs as needed. cc: Darian Gordillo MD
[2018-06-27] MEDS: CRESTOR PEG SCH (21:55)
--- NOTE | 2018-06-27 22:11 | GENERAL SURGERY PROGRESS NOTE ---
DATE: 06/27/2018 SUBJECTIVE: The patient is doing well. No new complaints today. OBJECTIVE: Vital signs: He is afebrile. Vital signs are stable. General: He is awake, alert, oriented x3. No acute distress. Extremities: His right foot wound was bandaged and appeared to have a clean bandage today. ASSESSMENT AND PLAN: A 63-year-old male with right foot infection and peripheral arterial disease status post revascularization and transmetatarsal amputation. We will continue with his antibiotics today and allow Dr. Padilla to re-evaluate tomorrow to make further disposition plans. If Dr. Padilla is not back tomorrow, then I will plan to discharge him home with wet-to-dry dressings and follow up as an outpatient. cc: MD Darian Vasquez MD
[2018-06-28] MEDS: ZOSYN 3.375 GM in NS 50 ML IV SCH ×4 (03:50→22:11)
[2018-06-28] MEDS: DILAUDID IV PRN ×3 (04:16→13:27)
[2018-06-28] MEDS: VANCOMYCIN 2 GM in NS 500 ML IV SCH (04:35)
[2018-06-28] MEDS: APIDRA SUBQ SCH ×4 (06:37→22:04)
[2018-06-28] MEDS: PRINIVIL PEG SCH ×2 (07:43→12:38)
[2018-06-28] MEDS: BASAGLAR SUBQ SCH ×2 (07:44→12:38)
--- NOTE | 2018-06-28 11:42 | GENERAL SURGERY PROGRESS NOTE ---
DATE: 06/28/2018 SUBJECTIVE: Mr. Nguyen's wound is inspected it is peaking granulating. His white count is normal. I am going to revise his transmetatarsal amputation tomorrow and close the wound. After this, hopefully we can get him back to [facility]. cc: MD Darian Paris MD
[2018-06-28] MEDS: PERIDEX MT SCH ×2 (12:38→22:05)
[2018-06-28] MEDS: MYCOSTATIN SUSP PO SCH ×3 (12:38→22:05)
[2018-06-28 15:08] LABS: AGAP 8; ALB/GLOB RATIO 0.5; ALBUMIN 2.5 g/dL (3.5-5.0); ALKALINE PHOSPHATASE 169 U/L (32-122); BUN 10 mg/dL (8-22); CALCIUM 8.9 mg/dL (8.8-10.2); CHLORIDE 108 mmol/L (98-107); COSMO 280; CREATININE 0.7 mg/dL (0.7-1.2); ESTIMATED GFR > 60; GLUCOSE 86 mg/dL (70-104); GOT 22 U/L (10-34); GPT 23 U/L (10-44); PHOSPHORUS 3.3 mg/dL (2.7-4.5); POTASSIUM 4.4 mmol/L (3.5-5.1); SODIUM 141 mmol/L (136-145); TCO2 25 mmol/L (25-35); TOTAL BILIRUBIN 0.21 mg/dL (0.20-1.00); TOTAL PROTEIN 7.5 g/dL (6.3-8.3)
[2018-06-28 15:24] LABS: PREALBUMIN 13.5 mg/dL (20-40)
--- NOTE | 2018-06-28 16:13 | PROGRESS NOTE ---
DATE: 06/28/2018 SUBJECTIVE: Patient resting in bed. Not in any obvious distress. OBJECTIVE: Vital Signs: Temperature 97.9 degrees, pulse 78, respiratory rate 16, blood pressure 116/72, oxygen saturation is 97%. HEENT: Atraumatic, normocephalic. Cardiovascular System: S1, S2. Respiratory system has evidence of good air entry bilaterally. Abdomen is soft, nontender. No masses felt. Extremities: Wound site, right foot, dressed. Central Nervous System: No obvious focal deficits noted. LABORATORIES: Sodium is 141, potassium 4.4, chloride is 108, bicarbonate 25, BUN is 10, creatinine 0.7. ASSESSMENT AND PLAN: 1. Severe peripheral arterial disease in the right lower extremity status post superficial femoral artery atherectomy and angioplasty. Continue aspirin as well as a statin. 2. Dry gangrene on the right foot, status post transmetatarsal amputation. Surgery following. 3. Protein-calorie malnutrition. Continue PEG tube feeding. 4. Diabetes mellitus. Continue blood sugar monitoring as well as sliding scale insulin. 5. Anemia. Follow up on hemoglobin, hematocrit. Transfuse PRBCs as needed. cc: Darian Gordillo MD
[2018-06-28] MEDS: CRESTOR PEG SCH (22:10)
[2018-06-28] MEDS: NORCO-7.5 PEG PRN (22:10)
[2018-06-29] MEDS: DILAUDID IV PRN ×2 (03:08→16:12)
[2018-06-29] MEDS: ZOSYN 3.375 GM in NS 50 ML IV SCH ×4 (04:48→22:08)
[2018-06-29] MEDS: APIDRA SUBQ SCH ×4 (06:33→23:35)
[2018-06-29] MEDS: BASAGLAR SUBQ SCH (09:42)
[2018-06-29] MEDS: MYCOSTATIN SUSP PO SCH ×4 (09:42→22:08)
[2018-06-29] MEDS: PERIDEX MT SCH (09:43)
[2018-06-29] MEDS: PRINIVIL PEG SCH (09:43)
[2018-06-29] MEDS: VANCOMYCIN 2 GM in NS 500 ML IV SCH (12:02)
[2018-06-29] MEDS ORDERED: DIPRIVAN 1% ONE (13:00)
--- NOTE | 2018-06-29 13:41 | PROGRESS NOTE ---
DATE: 06/29/2018 SUBJECTIVE: Patient resting in bed. Not in any obvious distress. OBJECTIVE: Vital signs: Temperature 97.9 degrees, pulse 94, respiratory rate is 20, blood pressure 134/82, oxygen saturation is 96%. HEENT: Patient is atraumatic, normocephalic. Cardiovascular System: S1, S2. Respiratory system has evidence of good air entry bilaterally. Abdomen is soft, nontender. No masses felt. Extremities: Wound site, right foot, dressed. Central Nervous System: No obvious focal deficits noted. LABORATORIES: None. ASSESSMENT AND PLAN: 1. Severe peripheral artery disease on the right lower extremity status post superficial femoral atherectomy as well as angioplasty. Continue aspirin as well as a statin. 2. Dry gangrene on the right foot status post transmetatarsal amputation. Surgery following. Note plans for surgical intervention tomorrow. 3. Protein-calorie malnutrition. Continue percutaneous endoscopic gastrostomy feeding. 4. Diabetes mellitus. Continue blood sugar monitoring as well as sliding scale insulin. 5. Anemia. Follow up on hemoglobin, hematocrit, and transfuse PRBCs as needed. DISPOSITION: The patient will be going to [facility] after surgical intervention hopefully this week or perhaps early next week. cc: Darian Gordillo MD
[2018-06-29] MEDS ORDERED: FENTANYL ONE (14:21)
[2018-06-29] MEDS ORDERED: XYLOCAINE-MPF 2% ONE (14:22)
--- NOTE | 2018-06-29 15:24 | OPERATIVE NOTE ---
PROCEDURE DATE: 06/29/2018 PROCEDURE: Revision of right transmetatarsal amputation with secondary wound closure. SURGEON: Armando Padilla MD. BOILING HOUSE HAND: KSENIA Jacinto. PREOPERATIVE DIAGNOSIS: History of recent right foot infection status post trans met amputation. POSTOPERATIVE DIAGNOSIS: History of recent right foot infection status post trans met amputation. INDICATIONS: A 63-year-old who has undergone revascularization of trans met amputation, intravenous antibiotic treatment of his foot infection, and now is here for revision of the amputation with secondary wound closure. The wound appears granulating, and no further necrosis is noted. DESCRIPTION OF PROCEDURE: Satisfactory general anesthesia was achieved. The right foot was prepped and draped in a sterile fashion. We carefully raised the periosteum off the exposed tarsals and metatarsal bones, and used the electric saw to divide the bone or remove the exposed tarsals and metatarsals. This then gave us enough soft tissue in our posterior flap to come forward and for the skin to come together without undue tension. After removing the bone, we copiously irrigated out the wound. The tissue was bleeding mildly and was clean. No further tissue necrosis required debridement. We then folded the posterior flap forward, and used interrupted 3-0 nylon simple stitches in the skin region to approximate the skin edges and approximate the posterior flap to the anterior flap. We then placed Xeroform gauze followed by sterile 4 x 4s, followed by sterile Kerlix. He tolerated the procedure satisfactory, and was sent to the recovery room in satisfactory condition. cc: MD Darian Paris MD
[2018-06-29] MEDS: TYLENOL PEG PRN (22:08)
[2018-06-29] MEDS: CRESTOR PEG SCH (22:08)
[2018-06-30] MEDS: ZOSYN 3.375 GM in NS 50 ML IV SCH ×4 (03:13→22:16)
[2018-06-30] MEDS: PERIDEX MT SCH ×3 (03:35→22:16)
[2018-06-30] MEDS: APIDRA SUBQ SCH ×4 (07:04→22:13)
[2018-06-30] MEDS: PRINIVIL PEG SCH (08:22)
[2018-06-30] MEDS: MYCOSTATIN SUSP PO SCH ×4 (08:22→22:16)
[2018-06-30] MEDS: BASAGLAR SUBQ SCH (08:23)
[2018-06-30] MEDS: VANCOMYCIN 2 GM in NS 500 ML IV SCH (10:24)
[2018-06-30] MEDS: DILAUDID IV PRN ×2 (10:31→18:01)
--- NOTE | 2018-06-30 13:06 | PROGRESS NOTE ---
DATE: 06/30/2018 SUBJECTIVE: The patient is resting in bed. Not in any obvious distress. OBJECTIVE: Vital signs: Temperature 97.8 degrees, pulse 102, respiratory rate 16, blood pressure 122/70, oxygen 99%. HEENT: Atraumatic, normocephalic. Cardiovascular: S1, S2. Respiratory system: Has evidence of good air entry bilaterally. Abdomen: Soft, nontender. No masses. Extremities: Wound site right foot dressed. Central nervous system: No obvious focal deficit noted. LABORATORY DATA: None. Blood sugar is 209. ASSESSMENT AND PLAN: 1. Severe peripheral arterial disease on the right lower extremity. Status post superficial femoral arterectomy as well as angioplasty. Continue aspirin as well as statin. 2. Dry gangrene right foot status post transmetatarsal amputation. Status post revision of right metatarsal amputation with secondary wound closure. Surgery following. 3. Protein calorie malnutrition. Continue percutaneous endoscopic gastrostomy tube feeding. 4. Diabetes mellitus. Continue blood sugar monitoring as well as sliding scale insulin. 5. Anemia. Follow up on hemoglobin and hematocrit. Transfuse PRBCs as needed. 6. Disposition. The patient will be going to [facility] when deemed appropriate by the surgical team. I think he can be discharged probably sometime early next week. cc: Darian Gordillo MD
[2018-06-30 15:01] LABS: AGAP 9; ALBUMIN 2.6 g/dL (3.5-5.0); BUN 18 mg/dL (8-22); CALCIUM 8.8 mg/dL (8.8-10.2); CHLORIDE 109 mmol/L (98-107); COSMO 291; ESTIMATED GFR > 60; GLUCOSE 167 mg/dL (70-104); PHOSPHORUS 2.9 mg/dL (2.7-4.5); POTASSIUM 4.1 mmol/L (3.5-5.1); SODIUM 143 mmol/L (136-145); TCO2 25 mmol/L (25-35)
--- NOTE | 2018-06-30 18:10 | GENERAL SURGERY PROGRESS NOTE ---
DATE: 06/30/2018 SUBJECTIVE: Mr. Nguyen is doing generally well. OBJECTIVE: Vital Signs: He is afebrile. Heart rate 106, blood pressure 133/73. Extremities: His foot is inspected today and looks good. It Is dry. It is not particularly causing him pain. It looks like it is healing satisfactorily. I will start making plans to return him to [facility] as soon as we can get a bed. cc: MD Darian Paris MD
[2018-06-30] MEDS: CRESTOR PEG SCH (22:16)
[2018-07-01] MEDS: ZOSYN 3.375 GM in NS 50 ML IV SCH (03:41)
[2018-07-01] MEDS: APIDRA SUBQ SCH ×4 (06:43→21:12)
--- NOTE | 2018-07-01 08:14 | GENERAL SURGERY PROGRESS NOTE ---
DATE: 07/01/2018 SUBJECTIVE: Mr. Nguyen is doing well. His bandage is dry. His hemodynamics were good. We are simply awaiting his return to [place] on Tuesday. I will stop his Zosyn today, but leave him on vancomycin. cc: MD Dom Paris MD
[2018-07-01] MEDS: BASAGLAR SUBQ SCH (08:39)
[2018-07-01] MEDS: PERIDEX MT SCH ×2 (08:40→21:14)
[2018-07-01] MEDS: MYCOSTATIN SUSP PO SCH ×4 (08:40→21:13)
[2018-07-01] MEDS: PRINIVIL PEG SCH (08:40)
[2018-07-01] MEDS: VANCOMYCIN 2 GM in NS 500 ML IV SCH (12:10)
--- NOTE | 2018-07-01 15:39 | PROGRESS NOTE ---
DATE: 07/01/2018 SUBJECTIVE: Today Mr. Nguyen refers to be doing fairly okay. No new complaints. Patient is awaiting transfer back to his snf. OBJECTIVE: Vitals: Blood pressure is 123/70, pulse is 100, respiration is 16, temperature is 97.8 degrees. General exam: Mr. Nguyen is a 63-year-old gentleman. He is in bed, no distress. HEENT: Mucosa is pink and moist. Anicteric. Acyanotic. Neck: Supple. Chest: Clear to auscultation. No crepitations. No rhonchi. Cardiovascular: Regular rate and rhythm. Abdomen: Soft, nontender. PEG tube is in place; insertion site looks clean. Extremities: No pedal edema. ORIENTOR: Patient is awake and follows basic commands. Musculoskeletal: The right lower extremity has a transmetatarsal amputation and is in a sterile dressing. LAB: No lab work for this morning. Patient's glucose is 147. CURRENT MEDICATIONS: Have all been reviewed. He is still on vancomycin 2 g every 24 hours. Zosyn has been discontinued. CULTURES: So far the blood cultures, as well as the right foot wound culture have been no growth. ASSESSMENT: 1. Dry gangrene to the right foot status post transmetatarsal amputation. 2. Severe peripheral vascular disease, most critical in the right lower extremity, status post superficial femoral artery arthrectomy and angioplasty. 3. Protein calorie malnutrition. Patient is getting tube feedings. 4. Diabetes mellitus on insulin regimen. 5. Normocytic anemia. Hemoglobin and hematocrit are stable. PLAN: So, in general, I think Mr. Nguyen is fairly stable. His cultures have all been negative. He is currently pending discharge back to his snf. We are okay whenever it is okay with surgery to discharge him. cc: Dom Alcantara MD
[2018-07-01] MEDS: CRESTOR PEG SCH (21:14)
[2018-07-01] MEDS: NORCO-7.5 PEG PRN (23:03)
[2018-07-02] MEDS: APIDRA SUBQ SCH ×4 (07:00→22:43)
[2018-07-02] MEDS: BASAGLAR SUBQ SCH (11:20)
[2018-07-02] MEDS: PRINIVIL PEG SCH (11:20)
[2018-07-02] MEDS: PERIDEX MT SCH ×2 (11:20→22:12)
[2018-07-02] MEDS: MYCOSTATIN SUSP PO SCH ×4 (11:20→22:12)
[2018-07-02] MEDS ORDERED: LANTUS INSULIN SUBQ ONE (12:21)
--- NOTE | 2018-07-02 12:36 | PROGRESS NOTE ---
DATE: 07/02/2018 SUBJECTIVE: Today, Mr. Nguyen refers to be doing fairly okay. Denies any complaints. His attending nurse was at the bedside doing a dressing change. OBJECTIVE: Vital Signs: Blood pressure is 137/79, pulse is 93, respirations 18, temperature 98.8 degrees. General: Mr. Nguyen is a 63-year-old gentleman. He was in bed. No distress. HEENT: Mucosa is pink and moist. Anicteric. Acyanotic. Neck: Supple. Chest: Clear to auscultation. No crepitations. No rhonchi. Cardiovascular: Regular rate and rhythm. No murmurs, no rubs, no gallops. GI: Abdomen is soft. Bowel sounds present. The PEG tube is in place. Insertion site is clean. Extremities: No pedal edema. Distal pulses are almost imperceptible. The right lower extremity has a transmetatarsal amputation. The stump is affronted with surgical sutures. It looks slightly puffy. There is some area of mild dehiscence, and the skin around the surgical line looks slightly hyperpigmented. LABORATORY DATA: Glucose is 252. CURRENT MEDICATIONS: Have all been reviewed. Still on vancomycin and insulin therapy. ASSESSMENT: 1. Dry gangrene to the right foot, status post transmetatarsal amputation. I saw the wound today during dressing change. There is an area of mild dehiscence, and the skin around the suture line looks slightly puffy. The pulse is also imperceptible. I am not 100% sure if there will be adequate wound healing. However, we will defer other interventions to the vascular surgeon on board. 2. Severe peripheral vascular disease, critical on the right lower extremity. The patient is status post femoral artery arthrectomy and angioplasty. 3. Protein calorie malnutrition. The patient is on tube feedings. 4. Diabetes mellitus, on insulin regimen. Will continue to continue to titrate his insulin demands for a better glycemic control. 5. Normocytic anemia, stable. In general, Mr. Nguyen is stable. I think there is a plan to [facility], hopefully tomorrow. Will follow up with further recommendations from surgery. cc: Dom Alcantara MD [facility] SYSTEMLeanne
[2018-07-02] MEDS: VANCOMYCIN 2 GM in NS 500 ML IV SCH (12:44)
--- NOTE | 2018-07-02 15:13 | GENERAL SURGERY PROGRESS NOTE ---
DATE: 07/02/2018 SUBJECTIVE: No events overnight. No fevers. No tachycardia. OBJECTIVE: Blood pressure 137/79. His dressing is clean. Glucose 128. ASSESSMENT/PLAN: A 63-year-old gentleman with status post debridement of transmetatarsal amputation site. We will continue local wound care. He is on antibiotics. Dr. Padilla will be back tomorrow. cc: MD Dom Patton MD
[2018-07-02] MEDS: CRESTOR PEG SCH (22:13)
[2018-07-03] MEDS: APIDRA SUBQ SCH (06:55)
--- NOTE | 2018-07-03 08:47 | DISCHARGE SUMMARY ---
ADMISSION DATE: 06/17/2018 DISCHARGE DATE: 07/03/2018 PRIMARY DISCHARGE DIAGNOSES: 1. Gangrene of the right foot with severe peripheral vascular disease. 2. Diabetes. 3. Hypertension. 4. Hypercholesterolemia. 5. History of cerebrovascular accident. PRIMARY PROCEDURES: 1. Included a right superficial femoral artery atherectomy and DCB balloon angioplasty. 2. Right transmetatarsal amputation. 3. Revision of the amputation with closure of the wound. HISTORY AND HOSPITAL COURSE: This is a 63-year-old resident of [facility] who came in with gangrene of the right forefoot. He had significant vascular disease. Was admitted and the vascular disease was treated with atherectomy, revascularizing his lower right leg. He had 2 vessel runoff to the foot so it was felt we could salvage his foot. After he was admitted, he was placed on Zosyn and vancomycin which controlled his infection. We then proceeded with the atherectomy to revascularize his right leg. Hospitalist was consulted to treat his diabetes. They were able to keep that under control. After the atherectomy, arterial study implied that he potentially could heal a transmetatarsal amputation so we proceeded with that. The wound did stabilize after the amputation. That was on 06/23/2018. We did leave the wound open because of the infectious process. We maintained the antibiotics, however. His wound cleaned up. By 06/29/2018, it was felt we could take him back to the operating room, revise his amputation, debride some of the tissue back, and then close it, which we did. Postoperatively, he has continued well. The wound looks healthy. He has tolerated it satisfactory so it is felt that he could be discharged back to [facility]. He will then return to see me in the office in 2 weeks to look at his wound and consider taking out some of the stitches at that time. He will resume his medications he was taking when he was admitted. Dry gauze wrapped around the foot is adequate for wound coverage. cc: MD Erik Paris MD
[2018-07-03] MEDS ORDERED: BASAGLAR SUBQ SCH (09:00)
--- NOTE | 2018-07-03 10:18 | PROGRESS NOTE ---
DATE: 07/03/2018 SUBJECTIVE: The patient states he is doing okay today. He has no complaints. OBJECTIVE: Vital signs: Blood pressure is 134/75 with a heart rate of 88, respirations 18, temperature 98.9 degrees oral with room air saturations 99 to 100 percent. Cardiovascular: Regular rate and rhythm. S1 and S2 appreciated. He has no murmur. Pulmonary: Breath sounds are clear with no increased work of breathing noted. Gastrointestinal: Abdomen is soft, nontender, nondistended with bowel sounds in all 4 quadrants. PEG tube is noted in place with insertion site clear. Extremities: No clubbing, cyanosis, or edema. Dressing to right lower extremity is intact and dry. Neurologic: He is alert and oriented x3. LABORATORIES: Blood sugars are ranging in the 120 to 180 range. ASSESSMENT: 1. Dry gangrene to the right foot, status post transmetatarsal amputation. Dressing is dry and intact. He is followed by Dr. Padilla and General Surgery. 2. Severe peripheral vascular disease, critical to right lower extremity. He is status post femoral artery arthrectomy and angioplasty. 3. Protein calorie malnutrition. continue tube feedings. 4. Diabetes mellitus. continue his current regimen. 5. Normocytic anemia, stable. Dictated by ESSENCE Chery for Erik Richmond MD Addendum: Patient seen and examined by myself. Agree with ESSENCE note. It reflects my assessment and plan. cc: ESSENCE Chery MD [facility]
[2018-07-03] MEDS: MYCOSTATIN SUSP PO SCH (10:41)
[2018-07-03] MEDS: PERIDEX MT SCH (10:41)
[2018-07-03] MEDS: PRINIVIL PEG SCH (10:41)
[2018-07-03 11:49] VITALS: BP 125/72
== END 2018-07-03 15:19 | DRG 240 ==
LOC: DIRADM 11:55 → 4N 12:01
PROVIDERS: ADMIT Internal Medicine; ATTEND Surgery
CPT/HCPCS: 36140; 36430; 71010; 71045; 75635; 80048; 80053; 80061; 80202; 81001; 82040; 82550; 82607; 82728; 82746; 82948; 83036; 83540; 83550; 83605; 83735; 84100; 84134; 84439; 84443; 84484; 85025; 85610; 85730; 86850; 86900; 86901; 86920; 86922; 87040; 87070; 87088; 88304; 88305; 88307; 93005; 93010; 93923; 94761; 94799; A9270; C1714; C1725; C1760; C2623; J0330; J0690; J1170; J1644; J1815; J2543; J3010; J3370; J7030; J7040; J7050; P9016; Q9967; XXXXX